=== PATIENT | female | born 1960 | race Caucasian/White ===

== ENCOUNTER 2019-04-17 13:22 | Outpatient (CLI) | payer OTHER ==
--- NOTE | 2019-04-17 16:19 | Mammography Report ---
DIGITAL SCREENING MAMMOGRAM WITH CAD, 04/17/2019 INDICATION: Routine screening mammography. TECHNIQUE: Digital bilateral 2D mammography was obtained in the craniocaudal and mediolateral obliq ue projections. This examination was interpreted with the benefit of Computer-Aided Detection analysi s. COMPARISON: 04/12/2018 FINDINGS: Breast Density: The breasts are heterogeneously dense, which may obscure small masses. There is no evidence of dominant mass, suspicious calcifications or architectural distortion in eithe r breast. IMPRESSION: No mammographic evidence of malignancy. Follow up recommendation: Routine yearly BI-RADS Category 1: Negative. A "normal" or negative report should not discourage follow up or biopsy of a clinically significant f inding. A written summary of these findings will be mailed to the patient. The patient will be entered into a mammography reporting system which will generate a reminder letter for the patient's next appointmen t at the appropriate interval. The [employer] recommends yearly mammograms starting at age 40 and continuing as l cate as a woman is in good health. Breast MRI is recommended for women with an approximate 20-25% or greater lifetime risk of breast cancer, including women with a strong family history of breast or ova jose cancer or who have been treated for Hodgkin's disease. Signer Name: Grayson Zuluaga MD Signed: 04/17/2019 4:15 PM Workstation Name: [id number]
== END 2019-04-17 13:23 | disposition home or self-care (01) ==
LOC: MAMMO 13:22
PROVIDERS: ATTEND Internal Medicine
DX: Z12.31 Encounter for screening mammogram for malignant neoplasm of breast (principal)
CPT/HCPCS: 77067

== ENCOUNTER 2020-04-22 08:38 | Outpatient (CLI) | payer OTHER | END 2020-04-22 08:39 | disposition home or self-care (01) | LOC: MAMMO 08:38 | PROVIDERS: ATTEND Internal Medicine | DX: Z12.31 Encounter for screening mammogram for malignant neoplasm of breast (principal) | CPT/HCPCS: 77067 ==

== ENCOUNTER 2020-05-14 09:15 | Outpatient (CLI) | payer OTHER ==
--- NOTE | 2020-05-14 10:33 | Ultrasound Report ---
ULTRASOUND BREAST RIGHT LIMITED, 05/14/2020 CLINICAL INFORMATION / INDICATION: Abnormal screening mammogram. Screening recall of the right breast . TECHNIQUE: Targeted ultrasound evaluation was performed of the area of interest. COMPARISON: Screening mammogram, 04/22/2020. 04/17/2019. FINDINGS: Sonographic evaluation of the right breast at the 11:00 position 7 cm from the nipple demonstrates an oval simple cyst measuring 6 mm. This corresponds to the density seen on the recent screening mammog [place]. There is no evidence of suspicious solid mass or shadowing. IMPRESSION: No sonographic evidence of malignancy. Right breast cyst representing a benign finding. Follow up recommendation: Routine yearly BI-RADS Category 2: Benign. A normal or "negative" report should not preclude biopsy or follow-up of a clinically suspicious find ing. Signer Name: Katie Guerra MD Signed: 05/14/2020 10:29 AM Workstation Name: [id number]
== END 2020-05-14 09:16 | disposition home or self-care (01) ==
LOC: MAMMO 09:15
PROVIDERS: ATTEND Internal Medicine
DX: N60.01 Solitary cyst of right breast (principal); N63.10 Unspecified lump in the right breast, unspecified quadrant